=== PATIENT | female | born 1980 | race African-American/Black ===

== ENCOUNTER 2016-04-29 19:01 | Emergency (ER) | payer SELFPAY ==
[2016-04-29] MEDS ORDERED: HYDRALAZINE HCL 10 MG TABLET PO ONE (19:44)
[2016-04-29] MEDS ORDERED: IBUPROFEN 800 MG TABLET PO ONE (19:44)
--- NOTE | 2016-04-29 19:46 | ER Document Report ---
ED Medical Screen (RME) - General Stated Complaint: HEAD PAIN Mode of Arrival: Ambulatory Information source: Patient Notes: Patient presents to the emergency department headache, vomited x2 and not feeling well for 4 days. Denies f/d. Took tylenol without relief. She was extremely high blood pressure does not take medications. I have greeted and performed a rapid initial assessment of this patient. A comprehensive ED assessment and evaluation of the patient, analysis of test results and completion of the medical decision making process will be conducted by additional ED providers. TRAVEL OUTSIDE OF THE [place] IN LAST 30 DAYS: No - Related Data Allergies/Adverse Reactions: No Known Allergies Allergy (Verified 01/24/15 19:07) Past Medical History - General Information source: Patient - Social History Cigarette use (# per day): Yes Frequency of alcohol use: None Drug Abuse: None Lives with: Alone - Past Medical History Cardiac Medical History: Reports: Hx Hypertension - Immunizations Hx Diphtheria, Pertussis, Tetanus Vaccination: Yes Physical Exam - Vital signs Vitals: Temp Pulse Resp BP Pulse Ox 98.6 F 90 17 153/123 H 99 04/29/16 19:30 04/29/16 19:30 04/29/16 19:30 04/29/16 19:30 04/29/16 19:30 Course - Vital Signs Vital signs: Temp Pulse Resp BP Pulse Ox 98.6 F 90 17 153/123 H 99 04/29/16 19:30 04/29/16 19:30 04/29/16 19:30 04/29/16 19:30 04/29/16 19:30
[2016-04-29 20:32] LABS: ABSOLUTE EOSINOPHILS # (AUTO) 0.2 10^3/uL (0.0-0.6); ABSOLUTE LYMPHOCYTES (AUTO) 2.4 10^3/uL (0.5-4.7); ABSOLUTE MONOCYTES (AUTO) 0.6 10^3/uL (0.1-1.4); ABSOLUTE NEUT (AUTO) 2.7 10^3/uL (1.7-8.2); BASOPHILS % (AUTO) 0.4 % (0-2); HEMATOCRIT 37.2 % (36.0-47.0); HEMOGLOBIN 11.9 g/dL (12.0-15.5); HGB HCT DIFFERENCE -1.5; LYMPHOCYTES % (AUTO) 41.4 % (13-45); MEAN CORPUSCULAR HEMOGLOBIN 25.9 pg (27.0-33.4); MEAN CORPUSCULAR VOLUME 81 fl (80-97); MONOCYTES % (AUTO) 9.4 % (3-13); SEGMENTED NEUTROPHILS % (AUTO) 45.8 % (42-78); WHITE BLOOD COUNT 5.8 10^3/uL (4.0-10.5)
[2016-04-29 20:56] LABS: ALANINE AMINOTRANSFERASE 23 U/L (9-52); ALBUMIN 4.1 g/dL (3.5-5.0); ALKALINE PHOSPHATASE 73 U/L (38-126); ANION GAP 9 (5-19); ASPARTATE AMINO TRANSFERASE 15 U/L (14-36); BILIRUBIN,TOTAL 0.3 mg/dL (0.2-1.3); BLOOD UREA NITROGEN 10 mg/dL (7-20); CALCIUM 9.2 mg/dL (8.4-10.2); CARBON DIOXIDE 30 mmol/L (22-30); CHLORIDE 104 mmol/L (98-107); CREATININE RESULT 0.86 mg/dL (0.52-1.25); GLUCOSE 90 mg/dL (75-110); POTASSIUM 3.9 mmol/L (3.6-5.0); SODIUM 143.3 mmol/L (137-145); TOTAL PROTEIN 7.6 g/dL (6.3-8.2)
[2016-04-29] MEDS ORDERED: KETOROLAC TROMETHAMINE INJ/PF 30 MG/1 ML SDV IV ONE (22:49)
[2016-04-29] MEDS ORDERED: PROCHLORPERAZINE EDISYLATE INJ 10 MG/2 ML VIAL IV ONE (22:49)
[2016-04-29] MEDS ORDERED: DIPHENHYDRAMINE HCL 50 MG/ML VIAL IV ONE (22:49)
--- NOTE | 2016-04-29 22:49 | ER Document Report ---
ED General - General Chief Complaint: Headache >24 hrs old Stated Complaint: HEAD PAIN Mode of Arrival: Ambulatory Notes: Patient is a 35-year-old female with past medical history of hypertension who presents with 4 days of headache and concerns about her blood pressure. Patient states that her headache is a normal, typical headache for her. She describes is a right-sided headache that is throbbing, moderate in nature. It has gradually worsened since onset. Worsened by lights and sounds. She is trying ibuprofen at home without improvement of her pain. She denies any associated weakness, numbness, altered mental status, or neck pain. Does note that she's had several episodes of nonbilious vomiting associated with headache which is typical for when she has her migraine headaches. She also expresses concerns about her blood pressure which she states in the past has required medical management. States she's been off her blood pressure medicines for at least the past several months and is requesting a refill of her home hydrochlorothiazide. TRAVEL OUTSIDE OF THE [place] IN LAST 30 DAYS: No - Related Data Allergies/Adverse Reactions: No Known Allergies Allergy (Verified 01/24/15 19:07) Past Medical History - General Information source: Patient - Social History Smoking Status: Current Every Day Smoker Cigarette use (# per day): Yes Chew tobacco use (# tins/day): No Frequency of alcohol use: None Drug Abuse: None Lives with: Alone Family History: Reviewed & Not Pertinent Patient has suicidal ideation: No Patient has homicidal ideation: No - Past Medical History Cardiac Medical History: Denies: Hx Hypertension Renal/ Medical History: Denies: Hx Peritoneal Dialysis Surgical Hx: Negative - Immunizations Hx Diphtheria, Pertussis, Tetanus Vaccination: Yes Review of Systems - Review of Systems Notes: Constitutional: Negative for fever. HENT: Negative for sore throat. Eyes: Negative for visual changes. Cardiovascular: Negative for chest pain. Respiratory: Negative for shortness of breath. Gastrointestinal: Negative for abdominal pain, positive for vomiting Genitourinary: Negative for dysuria. Musculoskeletal: Negative for back pain. Skin: Negative for rash. Neurological: Positive for headaches, negative for weakness or numbness. 10 point ROS negative except as marked above and in HPI. Physical Exam - Vital signs Vitals: Temp Pulse Resp BP Pulse Ox 98.6 F 90 17 153/123 H 99 04/29/16 19:30 04/29/16 19:30 04/29/16 19:30 04/29/16 19:30 04/29/16 19:30 Interpretation: Hypertensive Notes: PHYSICAL EXAMINATION: GENERAL: Well-appearing, well-nourished and in no acute distress. HEAD: Atraumatic, normocephalic. EYES: Pupils equal round and reactive to light, extraocular movements intact, sclera anicteric, conjunctiva are normal. ENT: nares patent, oropharynx clear without exudates. Moist mucous membranes. NECK: Normal range of motion, supple without lymphadenopathy LUNGS: Breath sounds clear to auscultation bilaterally and equal. No wheezes rales or rhonchi. HEART: Regular rate and rhythm without murmurs ABDOMEN: Soft, nontender, normoactive bowel sounds. No guarding, no rebound. No masses appreciated. EXTREMITIES: Normal range of motion, no pitting or edema. No cyanosis. NEUROLOGICAL: Face symmetric. Tongue protrudes midline. Extraocular motions intact. Pupils are 2 mm and equally reactive. Normal speech, normal gait. 5 out of 5 strength in both the distal and proximal upper and lower extremities bilaterally. Sensation is grossly intact throughout. Finger to nose testing normal. Pronator drift normal. PSYCH: Normal mood, normal affect. SKIN: Warm, Dry, normal turgor, no rashes or lesions noted. Course - Re-evaluation Re-evalutation: 04/29/16 22:49 Presentation of a headache that appears to be most consistent with tension versus migrainous type headache. Headache was not maximal in onset, patient has no focal neurologic deficits, no nuchal rigidity, vital signs within normal limits, no papilledema, and patient is overall well in appearance. Based on clinical history and examination I do not suspect an acute subarachnoid hemorrhage, dural venous sinus thrombosis, acute meningitis, or intercranial mass. Given my low clinical suspicion for any acute life-threatening etiology, I do not feel advanced neuro imaging or laboratory testing is indicated at this time. Will proceed with headache cocktail and reassess. 04/29/16 23:54 Patient has had complete resolution of her headache. Regarding her blood pressure: She has a history of essential hypertension and has run out of hydrochlorothiazide. Will restart this medication and I have asked that she follow-up with her primary care doctor. At this time will discharge with return precautions and follow-up recommendations. Verbal discharge instructions given a the bedside and opportunity for questions given. Medication warnings reviewed. Patient is in agreement with this plan and has verbalized understanding of return precautions and the need for primary care follow-up in the next 24-72 hours. - Vital Signs Vital signs: Temp Pulse Resp BP Pulse Ox 98.6 F 90 14 134/100 H 98 04/29/16 19:30 04/29/16 19:30 04/30/16 00:01 04/30/16 00:01 04/30/16 00:01 - Laboratory Result Diagrams: 04/29/16 20:00 04/29/16 20:00 Laboratory results interpreted by me: 04/29/16 20:00 Hgb 11.9 L MCH 25.9 L RDW 16.0 H Discharge - Discharge Clinical Impression: Essential hypertension Headache Qualifiers: Headache type: unspecified Headache chronicity pattern: acute headache Intractability: not intractable Qualified Code(s): R51 - Headache Condition: Good Disposition: HOME, SELF-CARE Additional Instructions: You have been seen in the Emergency Department (ED) for a headache. Please use Tylenol (acetaminophen) or Motrin (ibuprofen) as needed for symptoms, but only as written on the box. As we have discussed, please follow up with your primary care doctor as soon as possible regarding today's ED visit and your headache symptoms. Call your doctor or return to the ED if you have a worsening headache, sudden and severe headache, confusion, slurred speech, facial droop, weakness or numbness in any arm or leg, extreme fatigue, or other symptoms that concern you. You were seen today for blood pressure that was high. This is a long-term risk factor for multiple medical problems including heart attack and stroke. However, the blood pressure in of itself will not cause you to have an acute stroke or heart attack over the course of just several days or weeks. You need to have a gradual reduction of your blood pressure back to normal levels over the next several months in conjunction with your primary care physician. Please check your BP for the next one week once daily. Start the HCTZ if your top number is consistently >160 or your bottom number is consistently >100. Return if you develop headache, weakness, numbness, chest pain, pass out, or have any other symptoms that are concerning to you. Prescriptions: Hydrochlorothiazide 25 mg PO DAILY #30 tablet Forms: Return to Work
[2016-04-30 00:14] VITALS: BP 134/100
== END 2016-04-30 00:24 | disposition home or self-care (01) ==
LOC: ER 19:01
DX: R51 Headache (principal); I10 Essential (primary) hypertension; Z91.14 Patient's other noncompliance with medication regimen; R11.10 Vomiting, unspecified; F17.210 Nicotine dependence, cigarettes, uncomplicated
CPT/HCPCS: 99284; 96374; 96375; 36415; 84703; 85025; 80053; J1200; J3490; J1885; J0780

== ENCOUNTER 2017-07-01 19:39 | Emergency (ER) | payer OTHER ==
[2017-07-01] MEDS ORDERED: HYDROCHLOROTHIAZIDE 25 MG TABLET PO ONE (20:10)
[2017-07-01] MEDS ORDERED: BUTALB/ACETAMINOPHEN/CAFFEINE 1 TAB EACH PO ONE (20:10)
--- NOTE | 2017-07-01 20:20 | ER Document Report ---
ED General - General Chief Complaint: Headache Stated Complaint: HEADACHES Time Seen by Provider: 07/01/17 20:10 TRAVEL OUTSIDE OF THE [place] IN LAST 30 DAYS: No - HPI Patient complains to provider of: Headache Quality of pain: Achy Notes: Patient coming in for evaluation of headache. Patient states also elevated blood pressures been off her medications for approximately 6 months ago appointment to see her PCP on Thursday. Patient states she was on hydrochlorothiazide 25 mg daily. Patient states headache right frontal denies any trauma denies any nausea vomiting fever chills photosensitivity blurry vision. Patient resting comfortably upon my evaluation patient states she is try Tylenol for pain and Motrin. - Related Data Allergies/Adverse Reactions: No Known Allergies Allergy (Verified 01/24/15 19:07) Past Medical History - Social History Smoking Status: Current Every Day Smoker Family History: Reviewed & Not Pertinent Patient has suicidal ideation: No Patient has homicidal ideation: No - Past Medical History Cardiac Medical History: Denies: Hx Hypertension Renal/ Medical History: Denies: Hx Peritoneal Dialysis - Immunizations Hx Diphtheria, Pertussis, Tetanus Vaccination: Yes Review of Systems - Review of Systems Constitutional: No symptoms reported EENT: No symptoms reported Cardiovascular: No symptoms reported Respiratory: No symptoms reported Gastrointestinal: No symptoms reported Genitourinary: No symptoms reported Female Genitourinary: No symptoms reported Musculoskeletal: No symptoms reported Skin: No symptoms reported Hematologic/Lymphatic: No symptoms reported Neurological/Psychological: Headaches -: Yes All other systems reviewed and negative Physical Exam - Vital signs Vitals: Temp Pulse Resp BP Pulse Ox 98.7 F 85 20 153/119 H 100 07/01/17 19:48 07/01/17 19:48 07/01/17 19:48 07/01/17 19:48 07/01/17 19:48 Interpretation: Normal - General General appearance: Appears well, Alert - HEENT Head: Normocephalic, Atraumatic Eyes: Normal Pupils: PERRL - Respiratory Respiratory status: No respiratory distress Chest status: Nontender Breath sounds: Normal Chest palpation: Normal - Cardiovascular Rhythm: Regular Heart sounds: Normal auscultation Murmur: No - Abdominal Inspection: Normal Distension: No distension Bowel sounds: Normal Tenderness: Nontender Organomegaly: No organomegaly - Back Back: Normal, Nontender - Extremities General upper extremity: Normal inspection, Nontender, Normal color, Normal ROM , Normal temperature General lower extremity: Normal inspection, Nontender, Normal color, Normal ROM , Normal temperature, Normal weight bearing. No: Giuseppe's sign - Neurological Neuro grossly intact: Yes Cognition: Normal Orientation: AAOx4 Enterprise Coma Scale Eye Opening: Spontaneous Reji Coma Scale Verbal: Oriented Enterprise Coma Scale Motor: Obeys Commands Enterprise Coma Scale Total: 15 Speech: Normal Motor strength normal: LUE, RUE, LLE, RLE Sensory: Normal - Psychological Associated symptoms: Normal affect, Normal mood - Skin Skin Temperature: Warm Skin Moisture: Dry Skin Color: Normal Course - Re-evaluation Re-evalutation: 07/01/17 20:57 The patient presents with headache without signs of [employer] bleed, stroke, infection , or other serious etiology. The patient is neurologically intact. Given the extremely low risk of these diagnoses further testing and evaluation for these possibilities does not appear to be indicated at this time. The patient has been instructed to return if the symptoms worsen or change in any way.. Patient otherwise neurologically intact. Patient was given a dose for blood pressure medication. Given the option of treatment for Lorcet or combination Zofran Compazine. Patient chose Fioricet. Warning for the drowsiness that this medication can cause was given to the patient. States understanding patient was discharged home. 07/01/17 20:58 Patient also encouraged to use Motrin for pain control. - Vital Signs Vital signs: Temp Pulse Resp BP Pulse Ox 98.0 F 84 18 160/123 H 98 07/01/17 20:23 07/01/17 20:23 07/01/17 20:23 07/01/17 20:23 07/01/17 20:23 Discharge - Discharge Clinical Impression: Headache Qualifiers: Headache type: unspecified Headache chronicity pattern: acute headache Intractability: not intractable Qualified Code(s): R51 - Headache Hypertension Qualifiers: Hypertension type: essential hypertension Qualified Code(s): I10 - Essential ( primary) hypertension Disposition: HOME, SELF-CARE Instructions: Headache ([facility]), Hydrochlorothiazide ([facility]), Oral Narcotic Medication ([facility]) Additional Instructions: Your evaluation here in ER does not show any significant neurological deficits. I do believe your headache is more likely from muscle tension. I do believe the Fioricet will aid in your headache and would recommend drinking plenty water also taking Tylenol and Motrin for your headache. Please continue with your blood pressure medication. Please follow-up with your primary care physician as scheduled. Prescriptions: Butalb/Acetaminophen/Caffeine [Fioricet 50-300-40 mg Capsule] 1 cap PO Q6 #14 cap Hydrochlorothiazide 25 mg PO DAILY #30 tablet Forms: Elevated Blood Pressure, Return to Work Referrals: WES OSMAN MD [Primary Care Provider] - Follow up as needed
[2017-07-01 20:26] VITALS: BP 160/123
== END 2017-07-01 20:26 | disposition home or self-care (01) ==
LOC: ER 19:39
DX: I10 Essential (primary) hypertension (principal); R51 Headache; F17.200 Nicotine dependence, unspecified, uncomplicated
CPT/HCPCS: 99283; J3490

== ENCOUNTER → 2018-11-19 | Outpatient (CLI) | payer OTHER ==
--- NOTE | 2018-11-24 16:54 | RADIOLOGY REPORT (SQ) ---
EXAM DESCRIPTION: MRI BREAST BILATERAL W/WO COMPLETED DATE/TIME: 11/19/2018 1:39 pm REASON FOR STUDY: INCONCLUSIVE MAMMO (R92.2) R92.2 INCONCLUSIVE MAMMOGRAM COMPARISON: Prior mammography and ultrasound PATHOLOGIC CORRELATION: None. CONTRAST TYPE AND DOSE: 20 mL Dotarem. RENAL FUNCTION: Not required TECHNIQUE: MR imaging performed with a dedicated breast coil. Pre contrast T1 and T2 weighted images . Pre contrast and post contrast enhanced T1 weighted images with fat saturation. Subtraction images, 3D thick and thin MIPS, and kinetic analysis performed on an independent workstat ion. ([employer] workstation) Magnet strength: 1.5 T LIMITATIONS: None. FINDINGS: BREAST DENSITY: b. There are scattered areas of fibroglandular density. BACKGROUND PARENCHYMAL ENHANCEMENT:Minimal. RIGHT BREAST: No enhancing or suspicious masses. No clumped, regional/segmental ductal enhancement. CHEST WALL: Normal tissue planes. No abnormal internal mammary nodes. AXILLA: Normal axillary and retro-pectoral nodes. LEFT BREAST:No enhancing or suspicious masses. No clumped, regional/segmental ductal enhancement. CHEST WALL: Normal tissue planes. No abnormal internal mammary nodes. AXILLA: Normal axillary and retro-pectoral nodes. OTHER:No identified liver, bone, or lung lesions. No other significant incidental findings. IMPRESSION: NORMAL MR OF THE BREASTS. BIRAD: RIGHT BREAST: 1 Negative. LEFT BREAST: 1 Negative. RECOMMENDATION: RECOMMENDED FOLLOW-UP: Per clinical indications. TECHNICAL DOCUMENTATION: JOB ID: [id number] [employer]- All Rights Reserved Reading location - IP/workstation name: [email or web address]
== END ==
LOC: RAD 12:17
PROVIDERS: ATTEND Physician Assistant
DX: R92.2 Inconclusive mammogram (principal)
CPT/HCPCS: 82565; 77049; A9576